=== PATIENT | male | born 2000 | race Caucasian/White ===

== ENCOUNTER 2022-09-20 15:28 | Outpatient (REF) | payer SELFPAY ==
[2022-09-22 10:57] LABS: COVID-19 RT-PCR UVMMC Result Positive (Negative)
== END 2022-09-20 15:29 | disposition home or self-care (01) ==
LOC: LBN 15:28
PROVIDERS: Visit Provider Nurse Practitioner Family
DX: Z86.16 Personal history of COVID-19 (principal); Z20.822 Contact with and (suspected) exposure to COVID-19
CPT/HCPCS: U0003